=== PATIENT | male | born 1980 | race Caucasian/White ===

== ENCOUNTER 2019-01-26 21:18 | Emergency (ER) | payer SELFPAY ==
--- NOTE | 2019-01-27 00:12 | ED ---
GI/ HPI - HPI Summary HPI Summary: Pt is a 38 y/o M presenting to [facility] with a CC of a hernia on the R side of his genital region. He states that the hernia has been reoccurring for the past 2 years. He states that he has been unable to hold down a steady job due to the hernia stopping him from lifting and inhibiting how much he can walk. He rates the pain a 5/10 in severity. He stated that he usually reduces the hernia on his own but is unable to do so at this time. He denies any fevers, chills, diaphoresis, N/V/D, SOB, CP, and abdominal pain. He has no aggravating or alleviating factors during this visit. He requested a repair of the hernia. - History of Current Complaint Chief Complaint: EDAbdPain Time Seen by Provider: 01/27/19 00:07 Stated Complaint: HERNIA PER PT Hx Obtained From: Patient Onset/Duration: Started Hours Ago, Still Present Timing: Constant Severity: Moderate Current Severity: Moderate Pain Intensity: 5 Location of Pain: Groin Associated Signs and Symptoms: Positive: Other: - POSITIVE: inguinal hernia. Negative: Nausea, Vomiting, Diaphoresis, Fever, Chills, Abdominal Pain, Chest Pain - Allergy/Home Medications Allergies/Adverse Reactions: Allergies Allergy/AdvReac Type Severity Reaction Status Date / Time No Known Allergies Allergy Verified 01/26/19 21:26 PMH/Surg Hx/FS Hx/Imm Hx Previously Healthy: Yes - Pt left before a full history could be completed. Infectious Disease History: Yes Infectious Disease History: Denies: Traveled Outside the [place] in Last 30 Days - Additional Comments History Additional Comments: After the pt was informed of the POC he angrily stated that he was leaving since he has gone down this path without effect. Upon leaving the room he apologized and requested a discharge packet so he knew who to follow up with tomorrow for a surgical consult but left before a history could be conducted. Review of Systems Negative: Fever, Chills, Skin Diaphoresis Negative: Chest Pain Negative: Shortness Of Breath Negative: Abdominal Pain, Vomiting, Diarrhea, Nausea Positive: other - R hernia Negative: Headache All Other Systems Reviewed And Are Negative: Yes Physical Exam Vital Signs On Initial Exam: Initial Vitals Temp Pulse Resp BP Pulse Ox 98.7 F 104 16 162/96 94 01/26/19 21:20 01/26/19 21:20 01/26/19 21:20 01/26/19 21:20 01/26/19 21:20 Diagnostics - Vital Signs Vital Signs Temp Pulse Resp BP Pulse Ox 01/26/19 21:20 98.7 F 104 16 162/96 94 - Laboratory Lab Statement: Any lab studies that have been ordered have been reviewed, and results considered in the medical decision making process. GIGU Course/Dx - Course Course Of Treatment: The pt is a 38 y/o M presenting to [facility] with a R hernia. The pt was informed that he had to contact surgery tomorrow to repair the distended hernia. Pt agreed to calling surgery tomorrow and has been given the surgeon's contact information. The pt left his room and went to the waiting room before a full history was able to be collected. He did however receive a PE before he left which found that he had a R inguinal hernia. - Diagnoses Provider Diagnoses: Inguinal hernia Discharge - Sign-Out/Discharge Documenting (check all that apply): Patient Departure - discharge Patient Received Moderate/Deep Sedation with Procedure: No - Discharge Plan Condition: Stable Disposition: HOME Patient Education Materials: Inguinal Hernia (ED) Referrals: Angel Taylor MD [Medical Doctor] - As Soon As Possible Additional Instructions: Please contact Dr. Taylor tomorrow to schedule a surgery to repair the distended hernia. - Attestation Statements Document Initiated by Scribe: Yes Documenting Scribe: Jordin Williamson Provider For Whom Scribe is Documenting (Include Credential): Fredy Bond MD Scribe Attestation: Jordin Irizarry, scribed for Fredy Bond MD on 01/27/19 at 0022. Status of Scribe Document: Ready
[2019-01-27 00:24] VITALS: BP 0/0
== END 2019-01-27 00:23 | disposition home or self-care (01) ==
LOC: ED 21:18
DX: K40.90 Unilateral inguinal hernia, without obstruction or gangrene, not specified as recurrent (principal)
CPT/HCPCS: 99282

== ENCOUNTER 2023-09-09 13:10 | Inpatient (IN) ==
[2023-09-09 14:49] LABS: ABS Basophils 0.1 10^3/uL (0.0-0.1); ABS Eosinophils 0.1 10^3/uL (0.0-0.5); ABS Lymphocytes 2.8 10^3/uL (1.0-4.8); ABS Monocytes 0.6 10^3/uL (0.0-1.1); ABS Neutrophils 5.2 10^3/uL (1.5-7.6); ABS Nucleated RBC 0.01 10^3/ul; Eosinophil % 0.9 %; Hematocrit 42.3 % (38-53); Hemoglobin 14.2 g/dL (13.2-16.3); Lymphocyte % 31.6 %; Mean Corpuscular Hgb Conc 33.6 g/dL (31-36); Mean Corpuscular Volume 98.2 fL (80-97); Mean Platelet Volume 7.4 fL (7.5-11.2); Nucleated Red Blood Cells % 0.1 %/100WBC (0.0-0.8); Platelet Count 290 10^3/uL (150-450); Red Blood Count 4.31 10^6/uL (4.06-5.63); Red Cell Distribution Width 13.8 % (12-17); White Blood Count 8.7 10^3/uL (3.6-10.2)
[2023-09-09 15:09] LABS: Activated Partial Thrombo Time 32.7 seconds (26.0-38.0); INR 0.97 (0.83-1.13); Phosphorus 3.5 mg/dL (2.5-5.0); Uric Acid 6.2 mg/dL (4.4-7.6)
[2023-09-09 16:33] LABS: Hepatitis B Surface Antigen Nonreactive (Nonreactive)
[2023-09-09 16:50] LABS: Hepatitis B Surface Ab Immune (Immune); Hepatitis C Antibody Negative (Negative)
[2023-09-09] MEDS: NS 0.9% 1000 ml BAG 1,000 ML IV SCH (18:41)
[2023-09-10] MEDS ORDERED: Lorazepam PYXIS KEY PRN ×3 (09:08→14:22)
[2023-09-10] MEDS: LORazepam 2 mg VIAL 1 ml IV PUSH ONE ×3 (09:24→17:30)
[2023-09-10] MEDS: Lidocaine 2% PF 5 ML VIAL INJ ONE (11:25)
[2023-09-10] MEDS: Sulfamethox/Trimethoprim DS TAB 800/160 mg PO SCH (13:39)
[2023-09-10] MEDS: PTO:Bictegravir/Emtricit/Tenofov 1 TABLET PO SCH (13:39)
[2023-09-10 14:40] LABS: % CD3 74 % (58-86); % CD4 40 % (32-64); % CD8 33 % (13-40); 4/8 H/S Ratio 1.2 (>=0.9); Absolute CD45 Count 2.38 thou/mcL (0.82-2.84); CD3 1754 cells/mcL (550-2202); CD4 952 cells/mcL (365-1437); CD8 782 cells/mcL (145-846)
[2023-09-10 19:47] LABS: Immunoglobulin A 128 mg/dL (61 - 356); Immunoglobulin G 1800 mg/dL (767 - 1590); Immunoglobulin M 81 mg/dL (37 - 286)
[2023-09-10] MEDS: Iohexol 350 (CONTRAST) 500 ML MDV IV ONE (19:52)
[2023-09-10] MEDS: Iohexol 300 (CONTRAST) 10 ML SDV IV ONE (19:52)
[2023-09-11 06:19] LABS: ABS Lymphocytes 1.6 10^3/uL (1.0-4.8); ABS Monocytes 0.5 10^3/uL (0.0-1.1); ABS Neutrophils 10.5 10^3/uL (1.5-7.6); Hematocrit 40.2 % (38-53); Hemoglobin 13.5 g/dL (13.2-16.3); Mean Corpuscular Hemoglobin 33.3 pg (27-33); Mean Corpuscular Hgb Conc 33.6 g/dL (31-36); Mean Corpuscular Volume 99.1 fL (80-97); Mean Platelet Volume 7.4 fL (7.5-11.2); Platelet Count 263 10^3/uL (150-450); Red Blood Count 4.06 10^6/uL (4.06-5.63); White Blood Count 12.7 10^3/uL (3.6-10.2)
[2023-09-11 08:00] LABS: Albumin/Globulin Ratio 1.5 (1-3); Calcium 9.4 mg/dL (8.6-10.3); Creatinine, Serum 0.95 mg/dL (0.67-1.17); Globulin 2.6 g/dL (2-4); Potassium 4.1 mmol/L (3.5-5.0); Total Bilirubin 0.3 mg/dL (0.2-1.0); Total Protein 6.6 g/dL (6.4-8.9); eGFR CKD-EPI 102.5 (>60)
[2023-09-11] MEDS: NS 0.9% 1000 ml BAG 1,000 ML IV SCH (08:37)
[2023-09-11] MEDS: PALONOSETRON HCL 0.05 MG/ML (0.25 MG) SYRINGE (0.05 MG/ML) IV ONE (11:23)
[2023-09-11] MEDS: APREPITANT 130 MG/18 ML VIAL IV ONE (11:30)
[2023-09-11] MEDS: riTUXimab-ABBS 500 MG, riTUXimab-ABBS 200 MG in NS 0.9% 500 ml BAG 280 ML IVPB ONE (11:45)
[2023-09-11] MEDS: methylPREDNISolone SOD SUCC 125 mg 2 ML VIAL IV ONE (12:16)
[2023-09-11 15:27] LABS: HIV-1 RNA (PCR) Undetected copies/mL (Undetected)
[2023-09-11] MEDS: ETOPOSIDE IVPB ONE (16:02)
[2023-09-11] MEDS: NS 0.9% IVPB ONE (16:02)
[2023-09-11] MEDS: DOXORUBICIN IVPB ONE (16:02)
[2023-09-11] MEDS: VINCRISTINE IVPB ONE (16:02)
[2023-09-11 16:34] LABS: G6PD Quantitative RBC 11.6 U/g Hb (8.0 - 11.9)
[2023-09-12] MEDS: NS 0.9% 1000 ml BAG 1,000 ML IV SCH (06:11)
[2023-09-12 07:08] LABS: Uric Acid 2.2 mg/dL (4.4-7.6)
[2023-09-12] MEDS: DOXORUBICIN IVPB SCH (14:24)
[2023-09-12] MEDS: NS 0.9% IVPB SCH (14:24)
[2023-09-12] MEDS: VINCRISTINE IVPB SCH (14:24)
[2023-09-12] MEDS: ETOPOSIDE IVPB SCH (14:24)
[2023-09-12 20:10] LABS: Albumin 3.7 g/dL (3.2-5.2); Albumin/Globulin Ratio 1.4 (1-3); Calcium 9.1 mg/dL (8.6-10.3); Creatinine, Serum 0.67 mg/dL (0.67-1.17); Globulin 2.6 g/dL (2-4); Potassium 4.3 mmol/L (3.5-5.0); Total Bilirubin 0.2 mg/dL (0.2-1.0); Total Protein 6.3 g/dL (6.4-8.9); eGFR CKD-EPI 119.6 (>60)
[2023-09-12 20:12] LABS: ABS Lymphocytes 0.8 10^3/uL (1.0-4.8); ABS Monocytes 0.7 10^3/uL (0.0-1.1); ABS Neutrophils 16.6 10^3/uL (1.5-7.6); ABS Nucleated RBC 0.02 10^3/ul; Hematocrit 38.5 % (38-53); Hemoglobin 12.7 g/dL (13.2-16.3); Lymphocyte % 4.5 %; Mean Corpuscular Volume 99.9 fL (80-97); Mean Platelet Volume 8.2 fL (7.5-11.2); Nucleated Red Blood Cells % 0.1 %/100WBC (0.0-0.8); Platelet Count 228 10^3/uL (150-450); Red Blood Count 3.86 10^6/uL (4.06-5.63); White Blood Count 18.1 10^3/uL (3.6-10.2)
[2023-09-13 06:36] LABS: Albumin 3.5 g/dL (3.2-5.2); Albumin/Globulin Ratio 1.5 (1-3); Calcium 8.7 mg/dL (8.6-10.3); Creatinine, Serum 0.72 mg/dL (0.67-1.17); Globulin 2.3 g/dL (2-4); Magnesium 1.9 mg/dL (1.9-2.7); Potassium 4.1 mmol/L (3.5-5.0); Total Bilirubin 0.2 mg/dL (0.2-1.0); Total Protein 5.8 g/dL (6.4-8.9); Uric Acid 2.8 mg/dL (4.4-7.6)
[2023-09-13 07:04] LABS: ABS Lymphocytes 1.8 10^3/uL (1.0-4.8); ABS Monocytes 0.9 10^3/uL (0.0-1.1); ABS Neutrophils 8.3 10^3/uL (1.5-7.6); Eosinophil % 0.1 %; Hemoglobin 13.3 g/dL (13.2-16.3); Lymphocyte % 16.4 %; Mean Corpuscular Hemoglobin 32.8 pg (27-33); Mean Corpuscular Hgb Conc 33.4 g/dL (31-36); Mean Corpuscular Volume 98.4 fL (80-97); Mean Platelet Volume 8.1 fL (7.5-11.2); Platelet Count 220 10^3/uL (150-450); Red Blood Count 4.06 10^6/uL (4.06-5.63)
[2023-09-13] MEDS ORDERED: Lorazepam PYXIS KEY PRN (09:11)
[2023-09-13] MEDS: PALONOSETRON HCL 0.05 MG/ML (0.25 MG) SYRINGE (0.05 MG/ML) IV ONE (09:12)
[2023-09-13] MEDS: LORazepam 2 mg VIAL 1 ml IV PUSH ONE (09:24)
[2023-09-13] MEDS: Morphine 2 MG/ML SYRINGE IV ONE (09:24)
[2023-09-13] MEDS: Methotrexate PF 12 MG in NS Sodium Chloride 0.9% PF 9.52 ML INTRATHEC ONE ×2 (10:14→11:13)
[2023-09-13 10:36] LABS: Body Fluid Source Cerebral Spinal
[2023-09-13 10:51] LABS: CSF Glucose 61 mg/dL (40-70)
[2023-09-13 10:55] LABS: Body Fluid Appearance Clear
[2023-09-13 10:56] LABS: Body Fluid Color Colorless; CSF Tube # 4
[2023-09-13 11:09] LABS: CSF Body Fluid WBC 10 /mcL
[2023-09-13] MEDS: fentaNYL 100 mcg/2 ml 50 MCG/ML VIAL ONE (11:12)
[2023-09-13] MEDS: NS 0.9% 500 ml BAG 500 ML IV ONE (11:13)
[2023-09-13 12:57] LABS: Body Fluid Mono 28 %; Body Fluid Total Cells Counted 200
[2023-09-14 06:26] LABS: ABS Lymphocytes 2.4 10^3/uL (1.0-4.8); ABS Monocytes 0.6 10^3/uL (0.0-1.1); ABS Neutrophils 5.5 10^3/uL (1.5-7.6); Eosinophil % 0.3 %; Hematocrit 41.9 % (38-53); Hemoglobin 14.1 g/dL (13.2-16.3); Mean Corpuscular Hemoglobin 33.1 pg (27-33); Mean Corpuscular Hgb Conc 33.7 g/dL (31-36); Mean Corpuscular Volume 98.3 fL (80-97); Mean Platelet Volume 7.7 fL (7.5-11.2); Nucleated Red Blood Cells % 0.1 %/100WBC (0.0-0.8); Platelet Count 232 10^3/uL (150-450); Red Blood Count 4.26 10^6/uL (4.06-5.63); White Blood Count 8.5 10^3/uL (3.6-10.2)
[2023-09-14 06:53] LABS: Albumin 3.9 g/dL (3.2-5.2); Albumin/Globulin Ratio 1.4 (1-3); Calcium 8.8 mg/dL (8.6-10.3); Creatinine, Serum 0.63 mg/dL (0.67-1.17); Globulin 2.7 g/dL (2-4); Potassium 3.8 mmol/L (3.5-5.0); Total Bilirubin 0.3 mg/dL (0.2-1.0); Total Protein 6.6 g/dL (6.4-8.9); Uric Acid 4.1 mg/dL (4.4-7.6); eGFR CKD-EPI 121.8 (>60)
[2023-09-14] MEDS: Sodium Phosphate ADULT ENEMA 133 ML BTL PR ONE (08:28)
[2023-09-14] MEDS: Polyethylene Glycol 3350 17 GM PACKET PO PRN (17:28)
[2023-09-14] MEDS: Senna TAB 8.6 mg TAB PO SCH (21:33)
[2023-09-14] MEDS: Ondansetron 4 mg VIAL 2 MG/ML 2 ml VIAL IV PRN (23:52)
[2023-09-15] MEDS: Famotidine IV 10 MG/ML 2 ml VIAL (20 mg) IV SLOW PU SCH (01:09)
[2023-09-15 05:55] LABS: ABS Lymphocytes 2.3 10^3/uL (1.0-4.8); ABS Monocytes 0.3 10^3/uL (0.0-1.1); ABS Neutrophils 8.3 10^3/uL (1.5-7.6); ABS Nucleated RBC 0.01 10^3/ul; Eosinophil % 0.2 %; Hematocrit 42.5 % (38-53); Hemoglobin 14.3 g/dL (13.2-16.3); Lymphocyte % 20.7 %; Mean Corpuscular Hemoglobin 33.3 pg (27-33); Mean Corpuscular Hgb Conc 33.7 g/dL (31-36); Mean Corpuscular Volume 98.7 fL (80-97); Mean Platelet Volume 7.6 fL (7.5-11.2); Nucleated Red Blood Cells % 0.1 %/100WBC (0.0-0.8); Platelet Count 256 10^3/uL (150-450); Red Cell Distribution Width 13.9 % (12-17)
[2023-09-15 06:15] LABS: Albumin/Globulin Ratio 1.4 (1-3); Calcium 8.7 mg/dL (8.6-10.3); Creatinine, Serum 0.84 mg/dL (0.67-1.17); Globulin 2.8 g/dL (2-4); Potassium 3.6 mmol/L (3.5-5.0); Total Bilirubin 0.3 mg/dL (0.2-1.0); Total Protein 6.8 g/dL (6.4-8.9); Uric Acid 3.4 mg/dL (4.4-7.6); eGFR CKD-EPI 111.7 (>60)
[2023-09-15 10:27] VITALS: BP 118/66
[2023-09-15] MEDS: CYCLOPHOSPHAMIDE IVPB ONE (11:03)
[2023-09-15] MEDS: NS 0.9% IVPB ONE (11:03)
[2023-09-18 09:36] LABS: BM Referral Reason consult-lymphoma; BM Result Summary Normal
== END 2023-09-15 14:05 | disposition home or self-care (01) | DRG 691 ==
LOC: CHOA 13:10 → MED 17:28
PROVIDERS: ADMIT Internal Medicine Hematology & Oncology; ATTEND Internal Medicine Hematology & Oncology

== ENCOUNTER 2023-09-30 08:39 | Inpatient (IN) ==
[~2023-09-30 08:39] MED LIST: APREPITANT 130 MG in Premix IV 0 ML IV SCH; DEXAMETHASONE IVPB SCH; NS 0.9% IVPB SCH; riTUXimab-ABBS 500 MG, riTUXimab-ABBS 200 MG in NS 0.9% 500 ml BAG 280 ML IVPB SCH
[2023-09-30 09:00] LABS: ABS Basophils 0.1 10^3/uL (0.0-0.1); ABS Lymphocytes 1.9 10^3/uL (1.0-4.8); ABS Monocytes 0.7 10^3/uL (0.0-1.1); ABS Neutrophils 3.4 10^3/uL (1.5-7.6); ABS Nucleated RBC 0.01 10^3/ul; Eosinophil % 0.2 %; Hematocrit 36.9 % (38-53); Hemoglobin 12.5 g/dL (13.2-16.3); Lymphocyte % 31.1 %; Mean Corpuscular Hemoglobin 33.1 pg (27-33); Mean Corpuscular Hgb Conc 33.9 g/dL (31-36); Mean Corpuscular Volume 97.6 fL (80-97); Mean Platelet Volume 7.1 fL (7.5-11.2); Nucleated Red Blood Cells % 0.1 %/100WBC (0.0-0.8); Platelet Count 276 10^3/uL (150-450); Red Blood Count 3.78 10^6/uL (4.06-5.63); Red Cell Distribution Width 14.6 % (12-17); White Blood Count 6.1 10^3/uL (3.6-10.2)
[2023-09-30 09:20] LABS: Albumin 4.1 g/dL (3.2-5.2); Albumin/Globulin Ratio 1.5 (1-3); Calcium 9.2 mg/dL (8.6-10.3); Creatinine, Serum 1.01 mg/dL (0.67-1.17); Globulin 2.7 g/dL (2-4); Magnesium 1.9 mg/dL (1.9-2.7); Potassium 3.9 mmol/L (3.5-5.0); Total Bilirubin 0.2 mg/dL (0.2-1.0); Total Protein 6.8 g/dL (6.4-8.9); eGFR CKD-EPI 95.2 (>60)
[2023-09-30] MEDS ORDERED: diphenhydrAMINE 50 MG/ML INJ SYRINGE *CHOA ONE (10:16)
[2023-09-30] MEDS ORDERED: PALONOSETRON HCL 0.05 MG/ML (0.25 MG) SYRINGE (0.05 MG/ML) ONE (10:16)
[2023-09-30] MEDS ORDERED: Senna TAB 8.6 mg TAB PO PRN (11:42)
[2023-09-30] MEDS ORDERED: Ondansetron 4 mg VIAL 2 MG/ML 2 ml VIAL IV PRN (11:42)
[2023-09-30] MEDS ORDERED: methylPREDNISolone SOD SUCC 125 mg 2 ML VIAL ONE (13:50)
[2023-09-30] MEDS: NS 0.9% IVPB SCH (15:24)
[2023-09-30] MEDS: DOXORUBICIN IVPB SCH (15:24)
[2023-09-30] MEDS: VINCRISTINE IVPB SCH (15:24)
[2023-09-30] MEDS: ETOPOSIDE IVPB SCH (15:24)
[2023-09-30] MEDS: Sulfamethox/Trimethoprim DS TAB 800/160 mg PO SCH (17:32)
[2023-09-30] MEDS: NS 0.9% 1000 ml BAG 1,000 ML IV SCH (19:18)
[2023-10-01 05:51] LABS: ABS Lymphocytes 0.8 10^3/uL (1.0-4.8); ABS Monocytes 0.2 10^3/uL (0.0-1.1); ABS Neutrophils 6.2 10^3/uL (1.5-7.6); Hemoglobin 11.7 g/dL (13.2-16.3); Lymphocyte % 11.8 %; Mean Corpuscular Hemoglobin 32.7 pg (27-33); Mean Corpuscular Hgb Conc 33.5 g/dL (31-36); Mean Corpuscular Volume 97.6 fL (80-97); Platelet Count 275 10^3/uL (150-450); Red Blood Count 3.58 10^6/uL (4.06-5.63); Red Cell Distribution Width 14.5 % (12-17); White Blood Count 7.2 10^3/uL (3.6-10.2)
[2023-10-01 06:28] LABS: Albumin 3.7 g/dL (3.2-5.2); Albumin/Globulin Ratio 1.6 (1-3); Calcium 8.1 mg/dL (8.6-10.3); Creatinine, Serum 0.77 mg/dL (0.67-1.17); Globulin 2.3 g/dL (2-4); Magnesium 1.9 mg/dL (1.9-2.7); Total Bilirubin 0.2 mg/dL (0.2-1.0); eGFR CKD-EPI 114.6 (>60)
[2023-10-01] MEDS: methylPREDNISolone SOD SUCC 125 mg 2 ML VIAL IV SCH (08:43)
[2023-10-01] MEDS: NF: Bictegravir/Emtricit/Tenofov 1 TABLET PO SCH (08:44)
[2023-10-02 06:02] LABS: ABS Lymphocytes 1.4 10^3/uL (1.0-4.8); ABS Monocytes 1.1 10^3/uL (0.0-1.1); ABS Neutrophils 5.3 10^3/uL (1.5-7.6); Hematocrit 33.9 % (38-53); Hemoglobin 11.5 g/dL (13.2-16.3); Lymphocyte % 17.7 %; Mean Corpuscular Hemoglobin 33.3 pg (27-33); Mean Corpuscular Hgb Conc 33.9 g/dL (31-36); Mean Corpuscular Volume 98.1 fL (80-97); Mean Platelet Volume 6.8 fL (7.5-11.2); Nucleated Red Blood Cells % 0.1 %/100WBC (0.0-0.8); Platelet Count 300 10^3/uL (150-450); Red Blood Count 3.45 10^6/uL (4.06-5.63); Red Cell Distribution Width 14.4 % (12-17); White Blood Count 7.8 10^3/uL (3.6-10.2)
[2023-10-02 06:45] LABS: Albumin 3.6 g/dL (3.2-5.2); Albumin/Globulin Ratio 1.7 (1-3); Calcium 8.2 mg/dL (8.6-10.3); Creatinine, Serum 0.66 mg/dL (0.67-1.17); Globulin 2.1 g/dL (2-4); Magnesium 1.9 mg/dL (1.9-2.7); Potassium 3.6 mmol/L (3.5-5.0); Total Bilirubin 0.1 mg/dL (0.2-1.0); Total Protein 5.7 g/dL (6.4-8.9); eGFR CKD-EPI 120.1 (>60)
[2023-10-02] MEDS: PALONOSETRON HCL 0.05 MG/ML (0.25 MG) SYRINGE (0.05 MG/ML) IV ONE (09:44)
[2023-10-02] MEDS: Polyethylene Glycol 3350 17 GM PACKET PO PRN (09:44)
[2023-10-02] MEDS ORDERED: Clindamycin 1% TOPICAL(NF) TOPICAL SCH (21:00)
[2023-10-03] MEDS: Acetaminop/Codeine 300mg/30mg TAB PO PRN (01:25)
[2023-10-03] MEDS: Acetaminop/Codeine 300mg/30mg TAB ONE (02:29)
[2023-10-03 06:21] LABS: ABS Lymphocytes 1.5 10^3/uL (1.0-4.8); ABS Monocytes 0.6 10^3/uL (0.0-1.1); ABS Neutrophils 4.3 10^3/uL (1.5-7.6); Hematocrit 31.4 % (38-53); Hemoglobin 10.7 g/dL (13.2-16.3); Lymphocyte % 23.2 %; Mean Corpuscular Hemoglobin 33.4 pg (27-33); Mean Corpuscular Volume 98.2 fL (80-97); Mean Platelet Volume 7.1 fL (7.5-11.2); Platelet Count 256 10^3/uL (150-450); White Blood Count 6.5 10^3/uL (3.6-10.2)
[2023-10-03 06:31] LABS: Albumin/Globulin Ratio 1.7 (1-3); Calcium 6.9 mg/dL (8.6-10.3); Creatinine, Serum 0.59 mg/dL (0.67-1.17); Globulin 1.8 g/dL (2-4); Magnesium 1.4 mg/dL (1.9-2.7); Total Bilirubin 0.1 mg/dL (0.2-1.0); Total Protein 4.8 g/dL (6.4-8.9); eGFR CKD-EPI 124.2 (>60)
[2023-10-03] MEDS ORDERED: KCL 20 MEQ/100 ML IVPREMIX 20 MEQ/100 ML BAG IV SCH (10:00)
[2023-10-03] MEDS: fentaNYL 250 mcg/5 ml 50 MCG/ML 5 ml VIAL (250 MCG) ONE (11:05)
[2023-10-03] MEDS: KCL premix 10 MEQ/50 ML x 3 RUNS IV SCH (11:46)
[2023-10-03] MEDS: Methotrexate PF 12 MG in NS Sodium Chloride 0.9% PF 9.52 ML INTRATHEC ONE (14:07)
[2023-10-04 09:25] LABS: Body Fluid Source Cerebral Spinal
[2023-10-04 09:33] LABS: Body Fluid Appearance Clear; Body Fluid Color Colorless; CSF Tube # 3
[2023-10-04 09:36] LABS: CSF Body Fluid WBC 2 /mcL
[2023-10-04 10:10] VITALS: BP 126/84
[2023-10-04 10:11] LABS: Body Fluid Total Cells Counted 2
[2023-10-04] MEDS: NS 0.9% IVPB ONE (11:39)
[2023-10-04] MEDS: CYCLOPHOSPHAMIDE IVPB ONE (11:39)
[2023-10-04 12:46] LABS: ABS Lymphocytes 0.5 10^3/uL (1.0-4.8); ABS Monocytes 0.1 10^3/uL (0.0-1.1); ABS Neutrophils 10.9 10^3/uL (1.5-7.6); Hematocrit 41.8 % (38-53); Hemoglobin 13.7 g/dL (13.2-16.3); Lymphocyte % 4.5 %; Mean Corpuscular Hemoglobin 32.2 pg (27-33); Mean Corpuscular Hgb Conc 32.8 g/dL (31-36); Mean Corpuscular Volume 98.2 fL (80-97); Mean Platelet Volume 6.9 fL (7.5-11.2); Platelet Count 341 10^3/uL (150-450); Red Blood Count 4.25 10^6/uL (4.06-5.63); Red Cell Distribution Width 14.6 % (12-17); White Blood Count 11.5 10^3/uL (3.6-10.2)
[2023-10-04 13:21] LABS: Albumin 4.3 g/dL (3.2-5.2); Albumin/Globulin Ratio 1.5 (1-3); Calcium 9.3 mg/dL (8.6-10.3); Creatinine, Serum 0.82 mg/dL (0.67-1.17); Globulin 2.8 g/dL (2-4); Magnesium 2.1 mg/dL (1.9-2.7); Potassium 4.1 mmol/L (3.5-5.0); Total Bilirubin 0.3 mg/dL (0.2-1.0); Total Protein 7.1 g/dL (6.4-8.9); eGFR CKD-EPI 112.5 (>60)
== END 2023-10-04 11:20 | disposition home or self-care (01) | DRG 696 ==
LOC: CHOA 08:39 → MED 11:42
PROVIDERS: ADMIT Internal Medicine Hematology & Oncology; ATTEND Internal Medicine Hematology & Oncology

== ENCOUNTER 2023-10-21 08:30 | Inpatient (IN) ==
[~2023-10-21 08:30] MED LIST changes: -DEXAMETHASONE IVPB SCH; -NS 0.9% IVPB SCH
[2023-10-21 09:10] LABS: ABS Lymphocytes 1.7 10^3/uL (1.0-4.8); ABS Monocytes 0.7 10^3/uL (0.0-1.1); ABS Neutrophils 3.8 10^3/uL (1.5-7.6); ABS Nucleated RBC 0.01 10^3/ul; Eosinophil % 0.2 %; Hematocrit 37.6 % (38-53); Hemoglobin 13.2 g/dL (13.2-16.3); Lymphocyte % 26.8 %; Mean Corpuscular Hemoglobin 33.6 pg (27-33); Mean Corpuscular Volume 96.1 fL (80-97); Mean Platelet Volume 6.7 fL (7.5-11.2); Nucleated Red Blood Cells % 0.1 %/100WBC (0.0-0.8); Platelet Count 294 10^3/uL (150-450); Red Blood Count 3.91 10^6/uL (4.06-5.63); Red Cell Distribution Width 15.2 % (12-17); White Blood Count 6.2 10^3/uL (3.6-10.2)
[2023-10-21 09:32] LABS: Albumin 4.4 g/dL (3.2-5.2); Albumin/Globulin Ratio 1.4 (1-3); Calcium 9.1 mg/dL (8.6-10.3); Creatinine, Serum 0.81 mg/dL (0.67-1.17); Globulin 3.1 g/dL (2-4); Potassium 4.1 mmol/L (3.5-5.0); Total Bilirubin 0.2 mg/dL (0.2-1.0); Total Protein 7.5 g/dL (6.4-8.9); eGFR CKD-EPI 112.9 (>60)
[2023-10-21] MEDS ORDERED: diphenhydrAMINE 50 MG/ML INJ SYRINGE *CHOA ONE (09:41)
[2023-10-22] MEDS: APREPITANT 130 MG/18 ML VIAL IV ONE (13:29)
[2023-10-22] MEDS: PALONOSETRON HCL 0.05 MG/ML (0.25 MG) SYRINGE (0.05 MG/ML) IV ONE (13:29)
[2023-10-22] MEDS: methylPREDNISolone SOD SUCC 125 mg 2 ML VIAL IV ONE (13:29)
[2023-10-22] MEDS: ETOPOSIDE IVPB ONE (13:30)
[2023-10-22] MEDS: NS 0.9% IVPB ONE (13:30)
[2023-10-22] MEDS: DOXORUBICIN IVPB ONE (13:30)
[2023-10-22] MEDS: VINCRISTINE IVPB ONE (13:30)
[2023-10-23 05:58] LABS: ABS Lymphocytes 0.7 10^3/uL (1.0-4.8); ABS Monocytes 0.1 10^3/uL (0.0-1.1); ABS Neutrophils 5.6 10^3/uL (1.5-7.6); ABS Nucleated RBC 0.01 10^3/ul; Hematocrit 36.1 % (38-53); Hemoglobin 12.1 g/dL (13.2-16.3); Lymphocyte % 10.6 %; Mean Corpuscular Hemoglobin 32.4 pg (27-33); Mean Corpuscular Hgb Conc 33.6 g/dL (31-36); Mean Corpuscular Volume 96.4 fL (80-97); Mean Platelet Volume 6.7 fL (7.5-11.2); Nucleated Red Blood Cells % 0.1 %/100WBC (0.0-0.8); Platelet Count 342 10^3/uL (150-450); Red Blood Count 3.75 10^6/uL (4.06-5.63); Red Cell Distribution Width 15.7 % (12-17); White Blood Count 6.4 10^3/uL (3.6-10.2)
[2023-10-23 06:07] LABS: INR 0.98 (0.83-1.13)
[2023-10-23 06:20] LABS: Albumin 4.5 g/dL (3.2-5.2); Albumin/Globulin Ratio 1.6 (1-3); Calcium 9.4 mg/dL (8.6-10.3); Creatinine, Serum 0.83 mg/dL (0.67-1.17); Globulin 2.8 g/dL (2-4); Potassium 4.2 mmol/L (3.5-5.0); Total Bilirubin 0.2 mg/dL (0.2-1.0); Total Protein 7.3 g/dL (6.4-8.9); eGFR CKD-EPI 112.1 (>60)
[2023-10-23] MEDS: Sulfamethox/Trimethoprim DS TAB 800/160 mg PO SCH (09:42)
[2023-10-23] MEDS: [UNRECOGNIZED DRUG - OTHER] PO SCH (09:42)
[2023-10-23] MEDS: methylPREDNISolone SOD SUCC 125 mg 2 ML VIAL IV ONE (12:40)
[2023-10-23] MEDS: DOXORUBICIN IVPB SCH (12:48)
[2023-10-23] MEDS: NS 0.9% IVPB SCH (12:48)
[2023-10-23] MEDS: VINCRISTINE IVPB SCH (12:48)
[2023-10-23] MEDS: ETOPOSIDE IVPB SCH (12:48)
[2023-10-23] MEDS: NS 0.9% 1,000 ML IV SCH (19:09)
[2023-10-24] MEDS: Acetaminop/Codeine 300mg/30mg TAB PO PRN (11:12)
[2023-10-24 11:35] LABS: Body Fluid Source Cerebral Spinal
[2023-10-24 11:42] LABS: Body Fluid Appearance Clear; Body Fluid Color Colorless; CSF Tube # 4
[2023-10-24 11:58] LABS: CSF Body Fluid WBC 2 /mcL
[2023-10-24 12:07] LABS: ABS Lymphocytes 1.2 10^3/uL (1.0-4.8); ABS Monocytes 0.8 10^3/uL (0.0-1.1); ABS Neutrophils 5.5 10^3/uL (1.5-7.6); ABS Nucleated RBC 0.01 10^3/ul; Hematocrit 32.7 % (38-53); Hemoglobin 11.2 g/dL (13.2-16.3); Lymphocyte % 16.2 %; Mean Corpuscular Hemoglobin 33.3 pg (27-33); Mean Corpuscular Hgb Conc 34.2 g/dL (31-36); Mean Corpuscular Volume 97.3 fL (80-97); Mean Platelet Volume 6.6 fL (7.5-11.2); Nucleated Red Blood Cells % 0.1 %/100WBC (0.0-0.8); Platelet Count 325 10^3/uL (150-450); Red Blood Count 3.36 10^6/uL (4.06-5.63); Red Cell Distribution Width 16.4 % (12-17); White Blood Count 7.6 10^3/uL (3.6-10.2)
[2023-10-24] MEDS: methylPREDNISolone SOD SUCC 125 mg 2 ML VIAL IV ONE (12:15)
[2023-10-24 12:24] LABS: Albumin 3.8 g/dL (3.2-5.2); Albumin/Globulin Ratio 1.7 (1-3); Calcium 8.6 mg/dL (8.6-10.3); Creatinine, Serum 0.72 mg/dL (0.67-1.17); Globulin 2.3 g/dL (2-4); Potassium 3.7 mmol/L (3.5-5.0); Total Bilirubin 0.2 mg/dL (0.2-1.0); Total Protein 6.1 g/dL (6.4-8.9)
[2023-10-24 12:31] LABS: Body Fluid Mono 32 %; Body Fluid Total Cells Counted 25
[2023-10-24] MEDS: NS 0.9% INTRATHEC ONE (13:10)
[2023-10-24] MEDS: fentaNYL 250 mcg/5 ml 50 MCG/ML 5 ml VIAL (250 MCG) ONE (13:10)
[2023-10-24] MEDS: METHOTREXATE INTRATHEC ONE (13:10)
[2023-10-24] MEDS: Chlorhexidine MOUTHWASH 0.12% 15 ML UDC SWISH SPIT SCH (15:16)
[2023-10-25] MEDS: methylPREDNISolone SOD SUCC 125 mg 2 ML VIAL IV ONE (09:45)
[2023-10-25] MEDS: PALONOSETRON HCL 0.05 MG/ML (0.25 MG) SYRINGE (0.05 MG/ML) IV ONE (09:45)
[2023-10-25] MEDS: methylPREDNISolone SOD SUCC 125 mg 2 ML VIAL ONE (10:07)
[2023-10-25 10:23] LABS: ABS Lymphocytes 1.3 10^3/uL (1.0-4.8); ABS Monocytes 0.5 10^3/uL (0.0-1.1); ABS Neutrophils 3.9 10^3/uL (1.5-7.6); ABS Nucleated RBC 0.01 10^3/ul; Hematocrit 35.2 % (38-53); Hemoglobin 12.1 g/dL (13.2-16.3); Lymphocyte % 22.8 %; Mean Corpuscular Hemoglobin 33.3 pg (27-33); Mean Corpuscular Hgb Conc 34.4 g/dL (31-36); Mean Corpuscular Volume 96.8 fL (80-97); Mean Platelet Volume 6.6 fL (7.5-11.2); Nucleated Red Blood Cells % 0.1 %/100WBC (0.0-0.8); Platelet Count 350 10^3/uL (150-450); Red Blood Count 3.64 10^6/uL (4.06-5.63); Red Cell Distribution Width 16.3 % (12-17); White Blood Count 5.7 10^3/uL (3.6-10.2)
[2023-10-25 10:31] LABS: Albumin 3.8 g/dL (3.2-5.2); Albumin/Globulin Ratio 1.5 (1-3); Creatinine, Serum 0.7 mg/dL (0.67-1.17); Globulin 2.6 g/dL (2-4); Potassium 3.5 mmol/L (3.5-5.0); Total Bilirubin 0.3 mg/dL (0.2-1.0); Total Protein 6.4 g/dL (6.4-8.9)
[2023-10-25 10:47] LABS: INR 0.89 (0.83-1.13)
[2023-10-25] MEDS: Senna TAB 8.6 mg TAB PO PRN (12:56)
[2023-10-25] MEDS: Nicotine GUM 2MG FRUIT FLAVOR PO PRN (17:59)
[2023-10-25] MEDS: Nicotine GUM 2MG FRUIT FLAVOR PO ONE (18:04)
[2023-10-25] MEDS: Calcium Carb (TUMS) 500 mg CHEW TAB PO PRN (21:06)
[2023-10-26 05:28] VITALS: BP 116/72
[2023-10-26] MEDS: methylPREDNISolone SOD SUCC 125 mg 2 ML VIAL IV ONE (09:31)
[2023-10-26] MEDS: NS 0.9% IVPB SCH (09:31)
[2023-10-26] MEDS: MESNA IVPB SCH (09:31)
[2023-10-26 09:54] LABS: ABS Lymphocytes 1.7 10^3/uL (1.0-4.8); ABS Monocytes 0.2 10^3/uL (0.0-1.1); ABS Neutrophils 3.5 10^3/uL (1.5-7.6); Eosinophil % 0.1 %; Hematocrit 36.9 % (38-53); Hemoglobin 12.6 g/dL (13.2-16.3); Lymphocyte % 31.3 %; Mean Corpuscular Hemoglobin 32.9 pg (27-33); Mean Corpuscular Hgb Conc 34.2 g/dL (31-36); Mean Corpuscular Volume 96.2 fL (80-97); Mean Platelet Volume 6.3 fL (7.5-11.2); Nucleated Red Blood Cells % 0.1 %/100WBC (0.0-0.8); Platelet Count 372 10^3/uL (150-450); Red Blood Count 3.83 10^6/uL (4.06-5.63); Red Cell Distribution Width 16.1 % (12-17); White Blood Count 5.4 10^3/uL (3.6-10.2)
[2023-10-26 10:01] LABS: Albumin 4.1 g/dL (3.2-5.2); Albumin/Globulin Ratio 1.4 (1-3); Calcium 9.2 mg/dL (8.6-10.3); Creatinine, Serum 0.77 mg/dL (0.67-1.17); Potassium 3.6 mmol/L (3.5-5.0); Total Bilirubin 0.3 mg/dL (0.2-1.0); Total Protein 7.1 g/dL (6.4-8.9); eGFR CKD-EPI 114.6 (>60)
[2023-10-26] MEDS: CYCLOPHOSPHAMIDE IVPB ONE (10:25)
[2023-10-26] MEDS: NS 0.9% IVPB ONE (10:25)
[2023-10-31 11:08] LABS: Case Number CR-24-24473
== END 2023-10-26 11:15 | disposition left against medical advice (07) | DRG 696 ==
LOC: CHOA 08:30 → MEDTELE 10-22 11:41
PROVIDERS: ADMIT Internal Medicine Hematology & Oncology; ATTEND Internal Medicine Hematology & Oncology